=== PATIENT | female | born 1970 | race Caucasian/White ===

== ENCOUNTER → 2018-08-16 | Outpatient (REF) | payer OTHER ==
[~2018-08-16] MED LIST: PANT40TA2 PO; lisinopril PO
== END ==
LOC: M LAB LCGH 14:50
PROVIDERS: ATTEND Nurse Practitioner Family
DX: D24.2 Benign neoplasm of left breast (principal)

== ENCOUNTER → 2021-08-26 | Outpatient (CLI) | payer BC | LOC: M RAD 13:48 | PROVIDERS: ATTEND Nurse Practitioner Family | DX: N63.20 Unspecified lump in the left breast, unspecified quadrant (principal) ==

== ENCOUNTER → 2021-08-26 | Outpatient (CLI) | payer BC | LOC: M WHC 12:14 | PROVIDERS: ATTEND Nurse Practitioner Family | DX: N63.0 Unspecified lump in unspecified breast (principal); Z53.9 Procedure and treatment not carried out, unspecified reason ==

== ENCOUNTER → 2021-09-25 | Outpatient (CLI) | payer BC ==
[2021-09-25 09:57] LABS: HEMATOCRIT 40.6 % (36.0-47.0); HEMOGLOBIN 13.8 g/dl (12.0-15.5); MEAN CORPUSCULAR HEMOGLOBIN 31.2 pg (27.0-33.0); MEAN CORPUSCULAR VOLUME 91.9 fl (80.0-96.0); PLATELET COUNT, AUTOMATED 226 10^3/uL (150-450); RED BLOOD COUNT 4.42 10^6/uL (4.00-5.40); WHITE BLOOD COUNT 6.1 10^3/uL (4.0-10.0)
== END ==
LOC: M PLALAB 08:37
PROVIDERS: ATTEND Nurse Practitioner Family
DX: N63.20 Unspecified lump in the left breast, unspecified quadrant (principal)

== ENCOUNTER → 2021-09-29 | Outpatient (CLI) | payer BC ==
[~2021-09-29] MED LIST changes: +**SFHN** LIDOCAINE 1% MDV 20ML VIAL ONE; +**SFHN** SODIUM BICARBONATE 8.4% 50MEQ 50ML VIAL ONE; +VITMTA PO
[2021-09-29 10:40] VITALS: BP 120/84
== END ==
LOC: M WHCPRO 09:32
PROVIDERS: ATTEND Nurse Practitioner Family
DX: D24.2 Benign neoplasm of left breast (principal); N63.22 Unspecified lump in the left breast, upper inner quadrant

== ENCOUNTER → 2021-09-29 | Outpatient (CLI) | payer BC ==
[~2021-09-29] MED LIST changes: -**SFHN** LIDOCAINE 1% MDV 20ML VIAL ONE; -**SFHN** SODIUM BICARBONATE 8.4% 50MEQ 50ML VIAL ONE; +PROHANCE 279.3MG/ML 15ML VIAL As Ordered ONE
== END ==
LOC: M RAD 12:55
PROVIDERS: ATTEND Nurse Practitioner Family
DX: D24.2 Benign neoplasm of left breast (principal)
CPT/HCPCS: A9576; C8908

== ENCOUNTER → 2022-09-28 | Outpatient (CLI) | payer BC ==
[~2022-09-28] MED LIST changes: +E-Z-PAQUE 96% w/w SUSP 176GM BTL As Ordered ONE; -PROHANCE 279.3MG/ML 15ML VIAL As Ordered ONE
[2022-09-28 11:16] LABS: IMMUNOGLOBULIN A 95.2 MG/DL (40-350)
[2022-09-28 11:19] LABS: FREE T4 1.16 NG/DL (0.89-1.76); THYROID STIMULATING HORMONE 0.822 uIU/ML (0.55-4.78)
== END ==
LOC: M RAD 08:02
PROVIDERS: ATTEND Internal Medicine Gastroenterology
DX: R93.3 Abnormal findings on diagnostic imaging of other parts of digestive tract (principal)

== ENCOUNTER → 2022-10-20 | Outpatient (REF) | payer BC ==
[~2022-10-20] MED LIST changes: -E-Z-PAQUE 96% w/w SUSP 176GM BTL As Ordered ONE
== END ==
LOC: M LAB REF 11:22
PROVIDERS: ATTEND Internal Medicine Gastroenterology
DX: R93.3 Abnormal findings on diagnostic imaging of other parts of digestive tract (principal)

== ENCOUNTER → 2022-11-26 | Day surgery (SDC) | payer BC ==
[~2022-11-26] VITALS: Ht 165.1 cm; Wt 74.8 kg
[~2022-11-26] MED LIST changes: +LIDOCAINE 2% 100MG/5ML SDV (FOR ANES.) As Ordered ONE; +LISI10TA24 PO; +NS 1,000 ML IV ONE; +propofoL 200 MG/20 ML VIAL As Ordered ONE
[2022-11-26 10:20] VITALS: TEMP 97.5
[2022-11-26 10:45] VITALS: BP 108/70; O2SAT 100
[2022-11-26 13:14] LABS: CLOSTRIDIUM DIFFICILE PCR POSITIVE (NEGATIVE)
== END | disposition home or self-care (01) ==
LOC: M OPP 08:51
PROVIDERS: ATTEND Internal Medicine Gastroenterology
DX: K57.30 Diverticulosis of large intestine without perforation or abscess without bleeding (principal); K64.8 Other hemorrhoids; D12.3 Benign neoplasm of transverse colon; K63.89 Other specified diseases of intestine; K58.0 Irritable bowel syndrome with diarrhea; R11.0 Nausea; Z79.51 Long term (current) use of inhaled steroids; Z79.84 Long term (current) use of oral hypoglycemic drugs; Z79.899 Other long term (current) drug therapy; Z88.5 Allergy status to narcotic agent; Z88.8 Allergy status to other drugs, medicaments and biological substances

== ENCOUNTER → 2024-10-18 | Outpatient (REF) | payer BC ==
[~2024-10-18] MED LIST changes: -LIDOCAINE 2% 100MG/5ML SDV (FOR ANES.) As Ordered ONE; -NS 1,000 ML IV ONE; -propofoL 200 MG/20 ML VIAL As Ordered ONE
[2024-10-18 15:44] LABS: LDH LACTATE DEHYDROGENASE 182 U/L (120-246)
[2024-10-18 15:46] LABS: ALT/SGPT 24 U/L (7.0-40); AST/SGOT 16 U/L (<34); C REACTIVE PROTEIN QUANTITATIV 0.81 MG/DL (<1.0); CALCIUM LEVEL 9.5 MG/DL (8.5-10.1); CARBON DIOXIDE LEVEL 28 MMOL/L (20-31); CHLORIDE LEVEL 105 MMOL/L (98-107); CPK CREATINE PHOSPHOKINASE 82 U/L (34-145); CREATININE FOR GFR 0.77 MG/DL (0.55-1.30); GLOMERULAR FILTRATION RATE > 90.0 (>51); POTASSIUM SERUM 4.3 MMOL/L (3.5-5.1); SODIUM LEVEL 143 MMOL/L (136-145)
[2024-10-18 15:56] LABS: BASO # 0.0 10^3/uL (0.0-0.2); BASO % 0.7 % (0.0-1.0); EOS # 0.2 10^3/uL (0.0-0.5); EOS % 2.7 % (0.0-3.0); LYMPH # 1.9 10^3/uL (1.5-5.0); LYMPH % 31.5 % (24.0-44.0); MONO # 0.3 10^3/uL (0.0-0.8); MONO % 5.3 % (2.0-8.0); NEUTROPHILS # 3.5 10^3/uL (1.5-8.5); NEUTROPHILS % 59.6 % (36.0-66.0); PLATELET COUNT, AUTOMATED 246 10^3/uL (150-450)
[2024-10-18 16:10] LABS: ERYTHROCYTE SEDIMENTATION RATE 13 mm/hr (0-30)
== END ==
LOC: M SFHCRHEU 09:43
PROVIDERS: ATTEND Internal Medicine Rheumatology
DX: R52 Pain, unspecified (principal); R53.83 Other fatigue; G47.9 Sleep disorder, unspecified; R19.7 Diarrhea, unspecified; Z86.19 Personal history of other infectious and parasitic diseases